=== PATIENT | male | born 1970 | race Caucasian/White ===

== ENCOUNTER 2016-10-19 03:10 | Emergency (ER) | payer SELFPAY ==
[~2016-10-19] VITALS: Ht 185.4 cm; Wt 111.6 kg
[2016-10-19 03:14] VITALS: BP 138/96
--- NOTE | 2016-10-19 03:22 | NUR ---
45 y/o m w/c/o l shoulder pain x 5 days. Pt states was working and felt something pull out from L shoulder while transferring an object from a low to a high position. Pt states he has tried everything for pain but it just getting worse. no s/s of distress noted, ER md made aware.
--- NOTE | 2016-10-19 03:23 | NUR ---
PT TAKEN TO BED 3
--- NOTE | 2016-10-19 03:32 | NUR ---
X-Ray at bedside.
--- NOTE | 2016-10-19 03:38 | NUR ---
Dr. Doran evaluating patient at bedside.
[2016-10-19] MEDS ORDERED: KETOROLAC 30 MG/ML VIAL IM ONE (03:45)
[2016-10-19] MEDS ORDERED: HYDROcodone/APAP 5/325 MG 1 TAB TAB PO ONE (03:45)
--- NOTE | 2016-10-19 03:50 | NUR ---
PT RETURN FROM XRAY
[2016-10-19 04:03] VITALS: BP 138/96
--- NOTE | 2016-10-19 04:03 | NUR ---
Patient discharged with v/s stable. Written and verbal after care instructions given and explained. Patient alert, oriented and verbalized understanding of instructions. Ambulatory with steady gait. All questions addressed prior to discharge. ID band removed. Patient advised to follow up with PMD TOMORROW OR RETURN TO ER IF CONDITION WORSENS. Rx of NORCO 5MG AND NAPROSYN 500 MG given. Patient educated on indication of medication including possible reaction and side effects. Opportunity to ask questions provided and answered.
== END 2016-10-19 04:03 | disposition home or self-care (01) ==
LOC: MED 03:10
DX: S46.912A Strain of unspecified muscle, fascia and tendon at shoulder and upper arm level, left arm, initial encounter (principal); X50.0XXA Overexertion from strenuous movement or load, initial encounter; Y93.89 Activity, other specified; Y92.89 Other specified places as the place of occurrence of the external cause; Y99.8 Other external cause status
CPT/HCPCS: 73030; 96372; 99284; J1885